=== PATIENT | male | born 1985 | race Caucasian/White ===

== ENCOUNTER 2017-02-25 08:27 | Emergency (ER) | payer SELFPAY ==
[~2017-02-25] VITALS: Ht 180.3 cm; Wt 89.8 kg
--- NOTE | 2017-02-25 08:51 | PHYS DOC ---
Past Medical History Past Medical History: Anxiety, Depression, Hypertension, Migraines Additional Past Medical Histor: fx to R ankle Past Surgical History: No Surgical History, Tonsillectomy Additional Information: 1 ppd Alcohol Use: None Drug Use: Marijuana Adult General Chief Complaint Chief Complaint: SUICDAL IDEATION HPI HPI Patient is a 31 year old male who presents with complaint of suicidal ideation and self-harm. Patient states that he took a razor and made several cuts to his forearms bilaterally and attempt to try to kill himself. The patient states that he has history of suicidal ideation and was just released 2 days ago from an inpatient psychiatric center in [place], [place]. The patient was brought to the emergency department by EMS. Patient denies any other attempts at this time to harm himself including ingestion of pills. Patient denies any other somatic symptoms except for intermittent chest pain. Patient currently does not have pain. Patient came to the emergency department as he is feeling suicidal and is asking for help. Review of Systems Review of Systems Constitutional: Denies fever or chills [] Eyes: Denies change in visual acuity, redness, or eye pain [] HENT: Denies nasal congestion or sore throat [] Respiratory: Denies cough or shortness of breath [] Cardiovascular: Intermittent chest pain, denies edema [] GI: Denies abdominal pain, nausea, vomiting, bloody stools or diarrhea [] : Denies dysuria or hematuria [] Musculoskeletal: Denies back pain or joint pain [] Integument: Superficial cuts to bilateral forearms [] Neurologic: Denies headache, focal weakness or sensory changes [] Endocrine: Denies polyuria or polydipsia [] Current Medications Current Medications Current Medications Medications (Trade) Dose Ordered Sig/Shira Start Time Stop Time Status Last Admin Dose Admin Diphtheria/ Tetanus/Acell Pertussis (Boostrix) 0.5 ml ONCE ONCE 02/25/17 10:15 02/25/17 10:16 DC 02/25/17 10:18 0.5 ML Allergies Allergies Allergies Coded Allergies Type Severity Reaction Last Updated Verified codeine Allergy Intermediate vomiting 01/28/15 Yes Physical Exam Physical Exam Constitutional: Alert, afebrile, no acute distress. [] HENT: Normocephalic, atraumatic, bilateral external ears normal, oropharynx moist, no oral exudates, nose normal. [] Eyes: PERRLA, EOMI, conjunctiva normal, no discharge. [] Neck: Normal range of motion, no tenderness, supple, no stridor. [] Cardiovascular:Heart rate regular rhythm, no murmur [] Lungs & Thorax: Bilateral breath sounds clear to auscultation [] Abdomen: Bowel sounds normal, soft, no tenderness, no masses, no pulsatile masses. [] Skin: Warm, dry, multiple superficial linear lacerations extending through the epidermal layer with no fat exposure to the bilateral forearms in a crosshatched pattern. [] Back: No tenderness, no CVA tenderness. [] Extremities: No tenderness, no cyanosis, no clubbing, ROM intact, no edema. [] Neurologic: Alert and oriented X 3, normal motor function, normal sensory function, no focal deficits noted. [] Current Patient Data Vital Signs Vital Signs Date Time Temp Pulse Resp B/P (MAP) Pulse Ox O2 Delivery O2 Flow Rate FiO2 02/25/17 09:54 80 15 151/82 (105) 100 Room Air 02/25/17 08:32 97.7 97.7 Lab Values Laboratory Tests Test 02/25/17 09:10 02/25/17 10:24 White Blood Count 4.9 x10^3/uL (4.0-11.0) Red Blood Count 4.44 x10^6/uL (4.30-5.70) Hemoglobin 14.4 g/dL (13.0-17.5) Hematocrit 41.2 % (39.0-53.0) Mean Corpuscular Volume 93 fL (79-100) Mean Corpuscular Hemoglobin 32 pg (25-35) Mean Corpuscular Hemoglobin Concent 35 g/dL (31-37) Red Cell Distribution Width 12.3 % (11.5-14.5) Platelet Count 205 x10^3/uL (140-400) Neutrophils (%) (Auto) 61 % (31-73) Lymphocytes (%) (Auto) 25 % (24-48) Monocytes (%) (Auto) 11 % (0-9) H Eosinophils (%) (Auto) 4 % (0-3) H Basophils (%) (Auto) 1 % (0-3) Neutrophils # (Auto) 3.0 x10^3uL (1.8-7.7) Lymphocytes # (Auto) 1.2 x10^3/uL (1.0-4.8) Monocytes # (Auto) 0.5 x10^3/uL (0.0-1.1) Eosinophils # (Auto) 0.2 x10^3/uL (0.0-0.7) Basophils # (Auto) 0.0 x10^3/uL (0.0-0.2) Sodium Level 142 mmol/L (136-145) Potassium Level 4.0 mmol/L (3.5-5.1) Chloride Level 107 mmol/L (98-107) Carbon Dioxide Level 31 mmol/L (21-32) Anion Gap 4 (6-14) L Blood Urea Nitrogen 14 mg/dL (8-26) Creatinine 0.9 mg/dL (0.7-1.3) Estimated GFR (Cockcroft-Gault) 99.1 BUN/Creatinine Ratio 16 (6-20) Glucose Level 93 mg/dL (70-99) Calcium Level 8.5 mg/dL (8.5-10.1) Magnesium Level 1.7 mg/dL (1.8-2.4) L Total Bilirubin 0.4 mg/dL (0.2-1.0) Aspartate Amino Transferase (AST) 16 U/L (15-37) Alanine Aminotransferase (ALT) 33 U/L (16-63) Alkaline Phosphatase 72 U/L (46-116) Total Protein 6.8 g/dL (6.4-8.2) Albumin 4.0 g/dL (3.4-5.0) Albumin/Globulin Ratio 1.4 (1.0-1.7) Ethyl Alcohol Level < 10 mg/dL (0-10) Urine Opiates Screen Neg (NEG) Urine Methadone Screen Neg (NEG) Urine Barbiturates Neg (NEG) Urine Phencyclidine Screen Neg (NEG) Urine Amphetamine/Methamphetamine Neg (NEG) Urine Benzodiazepines Screen Pos (NEG) Urine Cocaine Screen Neg (NEG) Urine Cannabinoids Screen Pos (NEG) Urine Ethyl Alcohol Neg (NEG) Laboratory Tests 02/25/17 09:10 Laboratory Tests 02/25/17 09:10 EKG EKG Interpreted by me: Heart rate 62, sinus rhythm, normal intervals, normal axis, no acute ST/T-wave abnormalities present [] Radiology/Procedures Radiology/Procedures Not performed [] Course & Med Decision Making Course & Med Decision Making Pertinent Labs and Imaging studies reviewed. (See chart for details) Patient's lacerations are superficial and did not require repair. These were cleaned in the emergency department and dressed with clean bandages. The patient was evaluated by [facility] team. After evaluation, the patient was accepted to [facility] for acute psychiatric stabilization. Patient will be transferred by ground EMS directly to [facility]. Dragon Disclaimer Louon Disclaimer This electronic medical record was generated, in whole or in part, using a voice recognition dictation system. Departure Departure Impression: Primary Impression: Suicidal ideation Additional Impressions: Laceration of skin of left forearm Laceration of skin of right forearm Disposition: 65 XFER TO PSYCH HOSP/UNIT Condition: STABLE Referrals: NO PCP (PCP) Problem Qualifiers Additional Impressions: Laceration of skin of left forearm Encounter type: initial encounter Qualified Codes: S51.812A - Laceration without foreign body of left forearm, initial encounter Laceration of skin of right forearm Encounter type: initial encounter Qualified Codes: S51.811A - Laceration without foreign body of right forearm, initial encounter TANNER STOUT MD Feb 25, 2017 08:51
--- NOTE | 2017-02-25 08:56 | EKG ---
[facility] [address] [place] [address] Test Date: 2017-02-25 Test Time: 08:52:13 Pat Name: KAMILLE DUVAL Department: Room: Gender: M Phone Screener: : 1985 Requested By: TANNER STOUT Order Number: [id number] Reading MD: Junaid Dowell Measurements Intervals [place] Rate: 62 P: 33 NC: 152 QRS: 11 QRSD: 90 T: 13 QT: 384 QTc: 392 Interpretive Statements SINUS RHYTHM OTHERWISE NORMAL ECG RI6.01 No previous ECG available for comparison Electronically Signed On 02-25-2017 15:58:57 CDT by Junaid Dowell
[2017-02-25] MEDS ORDERED: QUET100T4 PO (08:58)
[2017-02-25] MEDS ORDERED: DULO60CA6 PO (08:58)
[2017-02-25] MEDS ORDERED: AMLO5TAB4 PO (08:58)
[2017-02-25 09:23] LABS: BASO % 1 % (0-3); EOS % 4 % (0-3); HEMATOCRIT 41.2 % (39.0-53.0); HEMOGLOBIN 14.4 g/dL (13.0-17.5); LYMPH # 1.2 x10^3/uL (1.0-4.8); LYMPH % 25 % (24-48); MEAN CORPUSCULAR HEMOGLOBIN 32 pg (25-35); MEAN CORPUSCULAR HGB CONC 35 g/dL (31-37); MEAN CORPUSCULAR VOLUME 93 fL (79-100); MONO % 11 % (0-9); NEUT % 61 % (31-73); PLATELET COUNT 205 x10^3/uL (140-400); RED BLOOD COUNT 4.44 x10^6/uL (4.30-5.70); RED CELL DISTRIBUTION WIDTH 12.3 % (11.5-14.5); WHITE BLOOD COUNT 4.9 x10^3/uL (4.0-11.0)
[2017-02-25 09:28] LABS: CALCIUM 8.5 mg/dL (8.5-10.1); CREATININE 0.9 mg/dL (0.7-1.3); GFR 99.1
[2017-02-25 09:34] LABS: ALBUMIN/GLOBULIN RATIO 1.4 (1.0-1.7); MAGNESIUM 1.7 mg/dL (1.8-2.4); TOTAL BILIRUBIN 0.4 mg/dL (0.2-1.0); TOTAL PROTEIN 6.8 g/dL (6.4-8.2)
[2017-02-25 09:54] VITALS: BP 151/82
[2017-02-25] MEDS ORDERED: DIPHTH,PERTUSS(ACELL),TET TOX 0.5 ML DISP.SYRIN. VAX IM ONE (10:15)
[2017-02-25 10:47] LABS: BILIRUBIN,URINE NEGATIVE (NEG); GLUCOSE,URINE NEGATIVE (NEG); NITRITE,URINE NEGATIVE (NEG); PH,URINE 7.5; PROTEIN,URINE 30 mg/dL (NEG-TRACE); UROBILINOGEN,URINE 0.2 mg/dL (0.2 mg/dL)
[2017-02-25 10:53] LABS: BARBITURATES NEG (NEG); BENZODIAZEPINES POS (NEG); CANNABINOIDS POS (NEG); COCAINE NEG (NEG); METHADONE NEG (NEG); OPIATES NEG (NEG); PHENCYCLIDINE NEG (NEG)
[2017-02-25 11:06] LABS: BACTERIA,URINE 0 /HPF (0-FEW); RBC,URINE 0 /HPF (0-2); SQUAMOUS EPITHELIAL CELL,UR OCC /LPF
[2017-02-25 11:07] LABS: SPERM,URINE PRESENT /HPF
[2017-02-25] MEDS ORDERED: LORazepam 1 MG TABLET PO ONE (11:15)
== END 2017-02-25 11:56 ==
LOC: ER 08:27
DX: S51.812A Laceration without foreign body of left forearm, initial encounter (principal); S51.811A Laceration without foreign body of right forearm, initial encounter; T14.91 Suicide attempt; R07.9 Chest pain, unspecified; F41.9 Anxiety disorder, unspecified; F32.9 Major depressive disorder, single episode, unspecified; I10 Essential (primary) hypertension; G43.909 Migraine, unspecified, not intractable, without status migrainosus; F17.200 Nicotine dependence, unspecified, uncomplicated; F12.10 Cannabis abuse, uncomplicated; Z88.5 Allergy status to narcotic agent; X78.8XXA Intentional self-harm by other sharp object, initial encounter; Y93.89 Activity, other specified; Y92.89 Other specified places as the place of occurrence of the external cause; Y99.8 Other external cause status
CPT/HCPCS: 36415; 80053; 80307; 81001; 83735; 85027; 90471; 90715; 93005; 99285; G0480; G0479

== ENCOUNTER 2020-01-03 10:03 | Emergency (ER) | payer SELFPAY ==
[~2020-01-03] VITALS: Ht 180.3 cm; Wt 104.5 kg
[~2020-01-03 10:03] MED LIST: AMLO5TAB4 PO; DULO60CA6 PO; QUET100T4 PO
[2020-01-03] MEDS ORDERED: ONDANSETRON PF 4 MG/2 ML VIAL. IVP ONE (10:30)
[2020-01-03] MEDS ORDERED: MECLIZINE HCL 12.5 MG TABLET. PO ONE (10:30)
[2020-01-03] MEDS ORDERED: IV NORMAL SALINE 1000ML BAG 1,000 ML IV ONE (10:30)
--- NOTE | 2020-01-03 10:34 | PHYS DOC ---
Past Medical History Past Medical History: Anxiety, Depression, Hypertension, Migraines Additional Past Medical Histor: fx to R ankle Past Surgical History: No Surgical History, Tonsillectomy Smoking Status: Current Every Day Smoker Alcohol Use: Rarely Drug Use: Marijuana General Adult EDM: Chief Complaint: DIZZY/LIGHT HEADED HPI: HPI: 34-year-old male with significant history of hypertension, TIA (Socrates stephens), who presents for the evaluation of dizziness since yesterday evening. He noted some dizziness yesterday evening, that resolved prior to going to bed. He awoke this morning, otherwise feeling well, but had recurrence of symptoms at work. He states it worsens when looking to the far right or far left. Reports some transient anterior chest discomfort that was nonradiating and nonpleuritic prior to arrival, lasting 5 minutes, now resolved. No other aggravating or alleviating factors. Review of Systems: Review of Systems: Gen: No fever, chills. Eyes: No blurred vision, diplopia. ENT: No nasal congestion, sore throat. CV: No palpitations. Reports transient chest pain, now resolved. Resp. No SOB, cough. GI: No abd pain, N/V. : No dysuria, hematuria. Neuro: No weakness. Reports headache, lightheadedness. MSK: No myalgia, arthralgia, back pain. Skin: No acute rash or lesion. Heart Score: Risk Factors: Risk Factors: DM, Current or recent (<one month) smoker, HTN, HLP, family history of CAD, obesity. Risk Scores: Score 0 - 3: 2.5% MACE over next 6 weeks - Discharge Home Score 4 - 6: 20.3% MACE over next 6 weeks - Admit for Clinical Observation Score 7 - 10: 72.7% MACE over next 6 weeks - Early Invasive Strategies Allergies: Allergies: Allergies Coded Allergies Type Severity Reaction Last Updated Verified codeine Allergy Intermediate vomiting 01/28/15 Yes Physical Exam: PE: Gen: NAD. Well nourished. Head: NC/AT. Eyes: No scleral icterus. No conjunctival injection. PERRL. EOMI. No inducible nystagmus. ENT: MMM. Posterior OP clear. Neck: Supple. No meningismus. CV: RRR. Peripheral pulses intact. Resp: CTAB. Abd: Soft. NT. ND. MSK: No peripheral cyanosis. No edema. Neuro: A&Ox3. Strength & sensation grossly intact throughout. No dysmetria. No aphasia or dysarthria. No visual field cut. No facial asymmetry. Skin. Warm. Dry. No acute rash. Psych: Appropriate mood & affect. Current Patient Data: Vital Signs: Vital Signs Date Time Temp Pulse Resp B/P (MAP) Pulse Ox O2 Delivery O2 Flow Rate FiO2 01/03/20 10:15 98.9 63 22 157/87 (110) 99 Room Air 98.9 EKG: EKG: EKG at 1013. Sinus rhythm. Heart rate 61. Normal intervals. No STEMI. Interpreted by me. Radiology/Procedures: Radiology/Procedures: AP portable chest radiograph 01/03/2020 Clinical History: Chest pain. An AP erect portable digital radiograph of the chest was obtained. The cardiac and mediastinal silhouettes are within normal limits in size and configuration. No acute pulmonary infiltrate is seen. No pleural effusion or pneumothorax is noted. The osseous structures are grossly intact. IMPRESSION: No acute abnormality is seen. Electronically signed by: Dash Austin MD (01/03/2020 10:59 AM) [id number] 1. CTA HEAD WITH AND WITHOUT CONTRAST. 2. CTA NECK WITH AND WITHOUT CONTRAST. TECHNIQUE: Computed tomographic angiography of the head and neck was performed following IV contrast according to arteriography protocol. Three-dimensional reconstructions were also performed. Maximum intensity projection images were provided. FINDINGS: Angiographic findings: The aortic arch has a typical branching pattern. There is no arch vessel stenosis. Both common carotid arteries are patent without stenosis. Both internal carotid arteries are patent without stenosis. The external carotid systems are patent. The vertebral arteries are patent. The basilar artery is patent. Both posterior cerebral arteries are patent. The posterior communicating arteries are visualized. The intracranial internal carotid arteries demonstrate no stenosis. The middle cerebral arteries are patent. The anterior cerebral arteries are patent. The anterior communicating artery is visualized. Nonangiographic findings: There is no intracranial hemorrhage. [place]-white differentiation is preserved. The ventricles are normal in size and position. Partial obscuration of the paranasal sinuses noted. Opacification of the right maxillary sinus ostium is noted. Patchy opacification of ethmoid air cells noted. Minimal mucosal thickening of exercises. The orbits are unremarkable. The temporal bones are unremarkable. Bone windows reveal no suspicious lesions. The lung apices demonstrate no acute abnormality. The parotid glands and submandibular glands are unremarkable. The thyroid gland demonstrates no suspicious lesions. There are no laryngeal or pharyngeal masses. There are no pathologically enlarged lymph nodes. IMPRESSION: No significant stenoses involving the visualized arterial structures. No aneurysm or dissection. Internal and external auditory canals are unremarkable. Cerebellopontine angle bilaterally is unremarkable. Opacification of the right maxillary sinus ostium. Patchy opacification of ethmoid air cells. PQRS Compliance Statement - Stenosis calculations for CT, MR and conventional angiography are based upon measurement of the distal ICA diameter in accordance with the NASCET methodology. Stenosis calculations for carotid ultrasound studies are derived from validated velocity criteria which are known to correlate with the NASCET methodology. *One or more of the following individualized dose reduction techniques were utilized for this examination: 1. Automated exposure control. 2. Adjustment of the mA and/or kV according to patient size. 3. Use of iterative reconstruction technique. Electronically signed by: Rei Martin MD (01/03/2020 11:51 AM) [id number] Course & Med Decision Making: Course & Med Decision Making Pertinent Labs and Imaging studies reviewed. (See chart for details) In summary, 34M p/w dizziness. No focal neuro deficits. No inducible nystagmus. No dysmetria. Labs unrevealing. EKG without acute injury pattern. CTAN/CTAH obtained, no vasculopathy noted, though incidental sinus opacifications, which may be contributing to his Sx. Received meclizine with improvement. Will DC home with empiric Tx with augmentin BID x2 weeks, rec OTC mucinex. Return precautions given. Shin Disclaimer: Shin Disclaimer: This electronic medical record was generated, in whole or in part, using a voice recognition dictation system. Departure Departure Impression: Primary Impression: Dizziness Additional Impression: Opacification of ethmoid sinus Disposition: HOME, SELF-CARE Condition: STABLE Referrals: NO PCP (PCP) Patient Instructions: Dizziness, [id number] Additional Instructions: Take over the counter zyrtec and mucinex per package instructions, in addition to your prescribed medications. Scripts Meclizine Hcl (MECLIZINE HCL) 25 Mg Tablet 1 TAB PO PRN TID, #30 TAB Prov: LE,SANDY H DO 01/03/20 Amoxicillin/Potassium Clav (AUGMENTIN 875-125 TABLET) 1 Each Tablet 1 TAB PO BID for 10 Days, #20 TAB 0 Refills Prov: SANDY MARTIN DO 01/03/20 Justicifation of Admission Dx: Justifications for Admission: Justification of Admission Dx: N/A SANDY MARTIN DO Jan 03, 2020 10:34
[2020-01-03 10:45] LABS: BASO % 1 % (0-3); EOS # 0.2 x10^3/uL (0.0-0.7); EOS % 4 % (0-3); HEMATOCRIT 44.3 % (39.0-53.0); HEMOGLOBIN 15.6 g/dL (13.0-17.5); LYMPH # 1.1 x10^3/uL (1.0-4.8); LYMPH % 23 % (24-48); MEAN CORPUSCULAR HEMOGLOBIN 32 pg (25-35); MEAN CORPUSCULAR HGB CONC 35 g/dL (31-37); MEAN CORPUSCULAR VOLUME 91 fL (79-100); MONO # 0.5 x10^3/uL (0.0-1.1); MONO % 11 % (0-9); NEUT % 62 % (31-73); PLATELET COUNT 248 x10^3/uL (140-400); RED BLOOD COUNT 4.87 x10^6/uL (4.30-5.70); RED CELL DISTRIBUTION WIDTH 12.7 % (11.5-14.5); WHITE BLOOD COUNT 4.9 x10^3/uL (4.0-11.0)
[2020-01-03 10:50] LABS: CALCIUM 8.8 mg/dL (8.5-10.1); GFR 86.1; POTASSIUM 4.3 mmol/L (3.5-5.1)
[2020-01-03 10:58] LABS: ALBUMIN 4.3 g/dL (3.4-5.0); ALBUMIN/GLOBULIN RATIO 1.4 (1.0-1.7); MAGNESIUM 1.8 mg/dL (1.8-2.4); TOTAL BILIRUBIN 0.4 mg/dL (0.2-1.0); TOTAL PROTEIN 7.4 g/dL (6.4-8.2)
[2020-01-03] MEDS ORDERED: CONTRAST GIVEN. MC PRN (11:00)
[2020-01-03] MEDS ORDERED: IOHEXOL 300 MG/ML 100ML VIAL. IV ONE (11:00)
--- NOTE | 2020-01-03 11:02 | RAD ---
AP portable chest radiograph 01/03/2020 Clinical History: Chest pain. An AP erect portable digital radiograph of the chest was obtained. The cardiac and mediastinal silhouettes are within normal limits in size and configuration. No acute pulmonary infiltrate is seen. No pleural effusion or pneumothorax is noted. The osseous structures are grossly intact. IMPRESSION: No acute abnormality is seen. Electronically signed by: Dash Austin MD (01/03/2020 10:59 AM) [id number]
--- NOTE | 2020-01-03 11:07 | EKG ---
[facility] [address] [place] [address] Test Date: 2020-01-03 Test Time: 10:13:23 Pat Name: KAMILLE DUVAL Department: Room: Gender: M Paraprofessional Aide Teacher: : 1985 Requested By: SANDY MARTIN Order Number: [id number] Reading MD: Alphonso Garcia Measurements Intervals [place] Rate: 61 P: MO: QRS: 32 QRSD: 88 T: 35 QT: 378 QTc: 386 Interpretive Statements SINUS RHYTHM Electronically Signed On 01-05-2020 16:24:40 CDT by Alphonso Garcia
--- NOTE | 2020-01-03 11:47 | RAD ---
Examination: CT HEAD WO CONTRAST History: Reason: ANGULO, dizziness / Spl. Instructions: / History: Comparison/Correlation: None Findings: Axial images of the head were obtained without contrast. Ventricles are normal size. No intracranial hemorrhage, midline shift, or mass effect. [place]-white matter differentiation is normal. Globes and optic nerves are unremarkable. Patchy opacification of the ethmoid air cells noted. Partial opacification of the right maxillary sinus is evident. Impression: No suspicious intracranial process. Electronically signed by: Rei Martin MD (01/03/2020 11:44 AM) [id number]
--- NOTE | 2020-01-03 11:54 | RAD ---
Examination: CT ANGIOGRAPHY HEAD AND NECK History: Reason: Dizziness / Spl. Instructions: INJ 75ML OMNI 300 / History: Comparison/Correlation: CT head without contrast performed earlier on the same day EXAM: 1. CTA HEAD WITH AND WITHOUT CONTRAST. 2. CTA NECK WITH AND WITHOUT CONTRAST. TECHNIQUE: Computed tomographic angiography of the head and neck was performed following IV contrast according to arteriography protocol. Three-dimensional reconstructions were also performed. Maximum intensity projection images were provided. FINDINGS: Angiographic findings: The aortic arch has a typical branching pattern. There is no arch vessel stenosis. Both common carotid arteries are patent without stenosis. Both internal carotid arteries are patent without stenosis. The external carotid systems are patent. The vertebral arteries are patent. The basilar artery is patent. Both posterior cerebral arteries are patent. The posterior communicating arteries are visualized. The intracranial internal carotid arteries demonstrate no stenosis. The middle cerebral arteries are patent. The anterior cerebral arteries are patent. The anterior communicating artery is visualized. Nonangiographic findings: There is no intracranial hemorrhage. [place]-white differentiation is preserved. The ventricles are normal in size and position. Partial obscuration of the paranasal sinuses noted. Opacification of the right maxillary sinus ostium is noted. Patchy opacification of ethmoid air cells noted. Minimal mucosal thickening of exercises. The orbits are unremarkable. The temporal bones are unremarkable. Bone windows reveal no suspicious lesions. The lung apices demonstrate no acute abnormality. The parotid glands and submandibular glands are unremarkable. The thyroid gland demonstrates no suspicious lesions. There are no laryngeal or pharyngeal masses. There are no pathologically enlarged lymph nodes. IMPRESSION: No significant stenoses involving the visualized arterial structures. No aneurysm or dissection. Internal and external auditory canals are unremarkable. Cerebellopontine angle bilaterally is unremarkable. Opacification of the right maxillary sinus ostium. Patchy opacification of ethmoid air cells. PQRS Compliance Statement - Stenosis calculations for CT, MR and conventional angiography are based upon measurement of the distal ICA diameter in accordance with the NASCET methodology. Stenosis calculations for carotid ultrasound studies are derived from validated velocity criteria which are known to correlate with the NASCET methodology. *One or more of the following individualized dose reduction techniques were utilized for this examination: 1. Automated exposure control. 2. Adjustment of the mA and/or kV according to patient size. 3. Use of iterative reconstruction technique. Electronically signed by: Rei Martin MD (01/03/2020 11:51 AM) [place] [id number]
[2020-01-03 12:44] VITALS: BP 171/89
[2020-01-03] MEDS ORDERED: MECL-75 PO (12:45)
[2020-01-03] MEDS ORDERED: AMOX1TAB61 PO (12:45)
== END 2020-01-03 12:52 | disposition home or self-care (01) ==
LOC: ER 10:03
DX: R42 Dizziness and giddiness (principal); J34.89 Other specified disorders of nose and nasal sinuses; I10 Essential (primary) hypertension; G43.909 Migraine, unspecified, not intractable, without status migrainosus; F17.200 Nicotine dependence, unspecified, uncomplicated; Z88.5 Allergy status to narcotic agent
CPT/HCPCS: 36415; 70450; 70496; 70498; 71045; 80053; 83735; 84484; 85025; 93005; 96361; 96374; 99285; J2405; J7030; Q9967; J8597